=== PATIENT | female | born 1995 | race Caucasian/White ===

== ENCOUNTER 2024-01-14 08:37 | Emergency (ER) | payer BC, OTHER ==
[~2024-01-14] VITALS: Ht 162.6 cm; Wt 79.8 kg
[~2024-01-14 08:37] MED LIST: ATIVAN
[2024-01-14] MEDS ORDERED: AZITHROMYCIN 250 MG TABLET ONE (09:31)
[2024-01-14] MEDS ORDERED: AZIT500T PO (09:31)
[2024-01-14] MEDS ORDERED: predniSONE 50 MG TABLET ONE (09:31)
[2024-01-14] MEDS ORDERED: PRED50TA PO (09:31)
[2024-01-14] MEDS: AZITHROMYCIN 250 MG TABLET PO ONE (09:34)
[2024-01-14] MEDS: predniSONE 50 MG TABLET PO ONE (09:34)
[2024-01-14] MEDS ORDERED: ALBU8.5H8 INH (09:36)
[2024-01-14] MEDS ORDERED: ALBUTEROL SULFATE 8 GM HFA.AER.AD IH PRN (09:45)
[2024-01-14 09:49] VITALS: BP 116/62; O2SAT 99
[2024-01-14 10:25] LABS: *URINE HCG, QUAL NEGATIVE (NEGATIVE)
== END 2024-01-14 09:50 | disposition home or self-care (01) ==
LOC: ER 08:37
DX: J45.909 Unspecified asthma, uncomplicated (principal); R10.2 Pelvic and perineal pain; Z79.899 Other long term (current) drug therapy
CPT/HCPCS: 99284; 71046; 84703; J7512; A4606; A4663; Q0144